=== PATIENT | male | born 1960 | race Caucasian/White ===

== ENCOUNTER 2022-06-30 13:45 | Outpatient (RCR) | payer BC, SELFPAY | END 2022-10-11 11:11 | disposition home or self-care (01) | PROVIDERS: PCP Student in an Organized Health Care Education/Training Program; Visit Provider Physician Assistant Surgical | DX: M25.512 Pain in left shoulder (principal); Z51.89 Encounter for other specified aftercare | CPT/HCPCS: 97110 ==

== ENCOUNTER 2023-03-08 10:26 | Day surgery (SDC) | payer BC, SELFPAY ==
[2023-03-08] VITALS (25 sets, daily range): BP systolic 115–170; BP diastolic 78–121; PULSE 40–94; RESP 12–18; TEMP 8.8–48; O2SAT 55–100; BMI 32.9
[2023-03-08] MEDS: SODIUM CHLORIDE 0.9 % (FLUSH) 10 ML SYRINGE IVF (10:55)
[2023-03-08] MEDS: LACTATED RINGERS 1000 ML 1,000 ML 100 ML IV (10:55)
[2023-03-08] MEDS: ACETAMINOPHEN 500 MG TABLET 1000 MG PO ×2 (11:28→19:33)
[2023-03-08] MEDS: OXYCODONE (CR) 10 MG TAB.ER.12H PO (11:29)
[2023-03-08] MEDS: CELECOXIB 200 MG CAPSULE PO ×2 (11:29→21:38)
--- NOTE | 2023-03-08 11:56 | SUR.PREOP ---
TIME?OUT:?1156 PT/Dilia Hansen RN/Dr. Ja MDA?VERIFICATION?OF?SURGICAL?SITE right knee,?PROCEDURE,?AND?CONSENT OBTAINED?PRIOR?TO?INVASIVE?PROCEDURE.
[2023-03-08] MEDS: fentaNYL 100 MCG/2 ML inj IVP (11:57)
[2023-03-08] MEDS: MIDAZOLAM HCL 1 MG/ML inj IVP (11:57)
--- NOTE | 2023-03-08 12:45 | CRLHL7_ITS ---
For Patients: As a result of the Cures Act, medical imaging exams and procedure reports are released immediately into your electronic medical record. You may view this report before your referring provider. If you have questions, please contact your health care provider. Indication: Postop Technique: Two views right knee Findings/Impression: Hardware from a right total knee arthroplasty is in satisfactory position. Bone alignment is normal. No sign of acute fracture. Postop changes are within normal limits. Dictated by Enrique Llanos MD @ 03/09/2023 8:39:31 AM (Electronically Signed)
[2023-03-08] MEDS: CEFAZOLIN 2 GM in 0.9 % SODIUM CHLORIDE Mini-bag 100 ML IVPB ×2 (12:53→19:33)
--- NOTE | 2023-03-08 12:54 | W.ANESCHARGE ---
Anesthesia Charges Start Date/Time Anesthesia Start Date: 03/08/23 Anesthesia Start Time: 12:43 Stop Date/Time Anesthesia Stop Date: 03/08/23 Anesthesia Stop Time: 14:44
--- NOTE | 2023-03-08 12:54 | W.PM.NB ---
Nerve Block Nerve Block Time Seen by Provider: 12:00 Date Seen: 03/08/23 Type of block requested by surgeon for post-operative analgesia: adductor canal Side: right Time out performed: Yes Verification of patient name: Yes Verification of date of : Yes Site marking: site marked Name of person performing procedure: Ja Continuous monitoring Was continuous monitoring of O2 sat, B/P, material checker, recorded every 15 minutes?: Yes Procedure Checklist: sterile prep, needles and gloves Ultrasound guided. Images saved: Yes Medications given in 5ml increments after negative aspiration: Ropivicaine %: 0.5 mL: 20 Needle gauge: 20 Decadron (mg): 10 Precedex (mcg): 25 Patient tolerated procedure well: Yes Additional comments: Needle noted adjacent to nerve Block Charges Block Charge (with Pro Fee): Femoral Nerve Use of Ultrasound Machine for Block: Yes- US Guidance/pain block
--- NOTE | 2023-03-08 12:55 | W.PM.NB ---
Nerve Block Nerve Block Time Seen by Provider: 12:00 Date Seen: 03/08/23 Type of block requested by surgeon for post-operative analgesia: geniculars Side: right Time out performed: Yes Verification of patient name: Yes Verification of date of : Yes Site marking: site marked Name of person performing procedure: Ja Continuous monitoring Was continuous monitoring of O2 sat, B/P, clinical research monitor, recorded every 15 minutes?: Yes Procedure Checklist: sterile prep, needles and gloves Medications given in 5ml increments after negative aspiration: Ropivicaine %: 0.5 mL: 9 Needle gauge: 25 Patient tolerated procedure well: Yes Block Charges Block Charge (with Pro Fee): Genicular Nerve Block Use of Ultrasound Machine for Block: No
--- NOTE | 2023-03-08 13:56 | PM.ORPRC ---
Procedure Note Date of procedure: 03/08/23 Procedure: PREOPERATIVE DIAGNOSIS: 1. Right knee osteoarthritis, primary, severe POSTOPERATIVE DIAGNOSIS: 1. Right knee osteoarthritis, primary, severe PROCEDURE: 1. Right total knee arthroplasty SURGEON: Charly Bonilla MD. FIRE EQUIPMENT OPERATOR: SYED [place] - Of note, a skilled research assistant member was critical for this case to aid in patient positioning, tissue retraction, limb manipulation/positioning, and closure. ANESTHESIA: Spinal anesthetic EBL: 50ml IMPLANTS: DePuy J&J uncemented femur/tibia, cemented patella TKA - Attune Press fit PS femur size 8, size 8 tibia, 6 poly spacer, 41mm cemented patella TOURNIQUET: 90 min at 300 torr COMPLICATIONS: None evident INDICATIONS: The patient is a pleasant 63-year-old male who has experienced severe right knee pain and difficulty bearing weight. Workup included x-rays which revealed severe osteoarthrosis in the knee. Given the deformity, the dysfunction, and the pain, as well as the failure of nonoperative management, recommendation was made for surgery. FINDINGS: Full-thickness chondral loss broadly throughout the medial compartment and patellofemoral compartment. Moderate to large tricompartmental osteophytes. Large effusion upon entering the joint. DESCRIPTION OF PROCEDURE: Following a thorough discussion of risks, benefits, and alternatives consent was obtained and the right knee was marked. The patient was brought to the operating room and placed supine on the operating table. Induction of anesthesia was undertaken. 2 g IV Ancef and 1 g tranexamic acid was administered within 1 hr of incision preoperatively. Proper time-out was performed identifying proper patient, site, procedure. The operative extremity was prepped and draped in the appropriate sterile fashion using ChloraPrep after the patient was positioned supine with all bony prominences well padded. A longitudinal, anterior, midline skin incision was made starting approximately 3cm proximal to the superior pole of the patella and advanced distal to the tibial tubercle. A median parapatellar arthrotomy was created. A medial subperiosteal sleeve was created with knife, zaragoza elevator and curved osteotome. The retropatellar fatpad was resected and the synovium in the suprapatellar pouch excised to visualize the anterior femoral cortex. Femoral preparation was performed via an intramedullary guide. Step drill allowed access into the femoral canal. The distal cutting guide was placed with 5? of valgus and 11 mm cut on the distal femur due to slight flexion contracture. Femur was sized using a posterior referencing guide in 3? of external rotation. This found have a best fit with the sizing noted above. The 4 in 1 cutting block was then placed, and the distal femur shaped accordingly. The box cut was then created and the trial implant inserted to confirm appropriate fit. We turned our attention to the proximal tibia. Extramedullary guide was utilized for cutting with the goal of being 90 degree cut from the mechanical axis of the tibia in the varus/valgus plane utilizing tibial crest as the primary alignment. Initially a 2 mm resection was performed from the medial tibial plateau. An additional 2 mm required resection. Ultimately, balancing was achieved in both flexion and extension in both varus and valgus. The knee was able to achieve full extension comfortably. The patella was initially measured and found have a thickness of 25 mm. It was resected back to approximately 15 mm. It was sized to be a best fit with as noted above. This was drilled & trial placed. All trials were placed and found to have an excellent stability and balance. At this stage, trial implants were removed, the tibia and femoral components were opened and inserted. Thereafter, the patella was thoroughly irrigated normal saline and dried. The cement was previously mixed on the back table and cement placed followed by the implant. This was clamped and allowed remained stable until the cement cured. The real poly spacer was opened and inserted. All extra cement was removed, and a 3 min Betadine soak performed. Finally, a final irrigation round with normal saline was performed. Closure performed with 0 PDS and #0 Stratafix for the quad tendon/retinaculum. 2-0 Vicryl/Stratafix for the subcutaneous and 4-0 Monocryl for subcuticular closure. Dressings were applied and the patient was awoken from anesthesia after the tourniquet deflated and transferred the PACU in stable condition. A skilled research assistant member was critical for this case to aid in patient positioning, tissue retraction, bone exposure, limb manipulation/positioning, patient safety, and closure. PLAN: 1. Weight bear as tolerated operative extremity. 2. 23 hr perioperative antibiotics. 3. Ice. 4. PT/OT consults for ambulation assistance/mobility education. 5. Social work consult for discharge planning. 6. DVT prophylaxis with at SCDs, Nik Hose, and aspirin twice daily.
--- NOTE | 2023-03-08 14:43 | W.ANESCHARGE ---
Anesthesia Charges Start Date/Time Anesthesia Start Date: 03/08/23 Anesthesia Start Time: 12:43 Stop Date/Time Anesthesia Stop Date: 03/08/23 Anesthesia Stop Time: 14:44
--- NOTE | 2023-03-08 17:40 | P.IMCN_ITS ---
Date of Consult Patient: Martín Patient Consult date: 03/08/23 Requesting Physician: Orthopedics Primary Care Provider: AYDIN DAIGLE DO Consult Narrative Reason for consult: Medical management after surgery Narrative: Lakhwinder Gomez is a 63 year old male with hypertension admitted to the hospital for right total knee arthroplasty. Procedure performed by Dr. Bonilla. There were no operative complications. Postoperatively he is doing well. Preoperatively he was doing well. He has had no recent illness or injury. No significant problems identified on preop physical. He has had previous bilateral shoulder surgery and bilateral inguinal hernia repair without complications of surgery no problems with anesthesia, bleeding or clotting. Review of Systems Narrative: No recent illness or injury. [facility] Medical History (Updated 03/08/23 @ 17:46 by Marquez Lopez MD) Lower extremity edema ?R60.0 - Localized edema (ICD-10) Essential tremor ?G25.0 - Essential tremor (ICD-10) Hypertension ?I10 - Essential (primary) hypertension (ICD-10) Sleep apnea ?G47.30 - Sleep apnea, unspecified (ICD-10) Encounter for screening for severe acute respiratory syndrome coronavirus 2 (SARS-CoV-2) infection ?Z11.52 - Encounter for screening for COVID-19 (ICD-10) Surgical History S/P left knee arthroscopy (11/12/03) ?Z98.890 - Other specified postprocedural states (ICD-10) Status post arthroscopy of right shoulder (10/19/16) ?Z98.890 - Other specified postprocedural states (ICD-10) H/O hernia repair ?Z98.890 - Other specified postprocedural states (ICD-10) ?Z87.19 - Personal history of other diseases of the digestive system (ICD-10) Status post left rotator cuff repair (01/26/22) ?Z98.890 - Other specified postprocedural states (ICD-10) Family History (Updated 03/08/23 @ 17:43 by Marquez Lopez MD) Father Melanoma Mother Dementia Social History (Updated 03/08/23 @ 17:44 by Marquez Lopez MD) Narrative: He lives with his . His house has just a few steps to get in. He can live on 1 level. He does not smoke. He drinks 2 beers a day. He has no adverse reaction if he does not drink for a couple days. Smoking Status: Never smoker Do you use any of these nicotine containing products: Smokeless Tobacco Second hand tobacco smoke exposure: No How often do you have a drink containing alcohol: 4 or more times a week Alcohol type: beer and hard liquor How many standard drinks containing alcohol do you have on a typical day: 1 or 2 AUDIT-C Alcohol total score: 4 Non-prescribed substance use: denies use Caffeine: Yes (Diet Dew, 1 bottle/day) Meds Home Medications and Allergies Home Medications Medication Instructions Recorded Confirmed Type furosemide 20 mg tablet 40 mg PO DAILY 03/08/23 03/08/23 History losartan 25 mg tablet 25 mg PO DAILY 03/08/23 03/08/23 History propranolol 20 mg tablet 20 mg PO BID 03/08/23 03/08/23 History Home Medication Comments: Furosemide is for lower extremity edema Propranolol is for essential tremor Allergies Allergy/AdvReac Type Severity Reaction Status Date / Time No Known Allergies Allergy Verified 03/08/23 10:45 Allergies/Adverse Reaction Comments: Amlodipine caused lower extremity edema Exam Narrative: Exam Narrative: He is alert appears in no distress. Speech is normal. He gives his own history. Oropharynx with small airway. Neck is supple without mass or adenopathy. Respirations are clear to auscultation. Cardiovascular: S1, S2, regular rate and rhythm. No murmur gallop or rub. Abdomen is soft without ten derness or mass. Extremities with intact pulses. No edema. He reports diminished sensation distally which is improving as the spinal anesthesia wears off. Const: Vital Signs, click to edit/add: Vital Signs - 24 hr 03/08/23 10:50 03/08/23 11:55 03/08/23 12:00 Temperature 98.7 F Pulse Rate 62 51 L 55 L Respiratory Rate 16 16 16 Blood Pressure 170/103 H 141/90 H 131/80 Pulse Oximetry 96 98 97 Oxygen Delivery Me thod Room Air Room Air Room Air Oxygen Flow Rate 03/08/23 12:15 03/08/23 12:30 03/08/23 14:41 Temperature 97.0 F L Pulse Rate 53 L 52 L 45 L Respiratory Rate 16 16 12 Blood Pressure 127/78 124/82 139/88 Pulse Oximetry 97 97 97 Oxygen Delivery Me thod Nasal Cannula Nasal Cannula Room Air Oxygen Flow Rate 2 2 03/08/23 14:45 03/08/23 14:50 03/08/23 14:55 Temperature Pulse Rate 43 L 42 L 40 L Respiratory Rate 12 12 12 Blood Pressure 138/88 139/88 138/88 Pulse Oximetry 94 98 98 Oxygen Delivery Me thod Room Air Room Air Room Air Oxygen Flow Rate 03/08/23 15:00 03/08/23 15:05 03/08/23 15:10 Temperature 48 F L 97.2 F L Pulse Rate 51 L 54 L Respiratory Rate 12 14 14 Blood Pressure 137/103 H 137/90 H 152/98 H Pulse Oximetry 99 97 100 Oxygen Delivery Me thod Room Air Room Air Room Air Oxygen Flow Rate 03/08/23 15:20 Temperature Pulse Rate 54 L Respiratory Rate 14 Blood Pressure 151/96 H Pulse Oximetry 98 Oxygen Delivery Me thod Room Air Oxygen Flow Rate Documenting provider has reviewed patient's vital signs: yes Assessment and Plan Assessment and plan (1) Osteoarthritis of right knee: Problem comment: severe Status: Chronic (2) Lower extremity edema: Problem comment: Has had lower extremity edema initially due to amlodipine therapy but continues after discontinuing amlodipine. Status: Acute Plan Patient is admitted for pain management, rehabilitation and postoperative monitoring following knee replacement. Anticipate discharge to home tomorrow. Resume home medications except furosemide until discharge.
[2023-03-08] MEDS: LACTATED RINGERS 1000 ML 1,000 ML 75 ML IV (19:42)
[2023-03-08] MEDS: PROPRANOLOL 20 MG TABLET PO (21:33)
[2023-03-08] MEDS: OXYCODONE 5 MG TABLET PO (21:34)
[2023-03-08] MEDS: ASPIRIN 81 MG TABLET EC PO (21:34)
[2023-03-09] MEDS: ACETAMINOPHEN 500 MG TABLET 1000 MG PO ×2 (00:14→05:52)
[2023-03-09] MEDS: OXYCODONE 5 MG TABLET PO ×3 (02:46→11:04)
[2023-03-09] MEDS: CEFAZOLIN 2 GM in 0.9 % SODIUM CHLORIDE Mini-bag 100 ML IVPB (02:46)
[2023-03-09 02:54] VITALS: BP 129/91; PULSE 56; RESP 18; TEMP 36.5; O2SAT 96
--- NOTE | 2023-03-09 06:48 | PC.NURSE ---
pt A&O. tolerating regular diet. PRN oxycodone given x2 for pain. Pt stating adequate relief. SBA w/ walker and gait belt. Ambulated in perez x4. Denies n/v. dressing c/d/i. CRYO cuff to right knee. voiding adequately. ?CPAP at bedside, Pt declined to wear. O2 greater than 90% throughout shift.
[2023-03-09 07:00] VITALS: BP 131/81; PULSE 95; RESP 16; TEMP 36.6; O2SAT 95; O2SAT 96
[2023-03-09 07:10] LABS: Hematocrit 34.3 % (37.0-53.0); Hemoglobin* 12.1 gm/dL (13.5-17.5); Immature Granulocytes Abs Auto 0.03 K/uL (0.00-0.30); Immature Granulocytes Pct Auto 0.3 %; Lymphocytes Percent Auto 6.1 % (20-44); Mean Corpuscular HGB Conc 35 gm/dL (32-36); Mean Corpuscular Hemoglobin 34 pg (26-34); Mean Corpuscular Volume 95 fL (80-100); Monocytes Percent Auto 12.5 % (0.0-11.0); Neutrophils Percent Auto 81.1 % (42.0-72.0); Platelet Count* 189 K/uL (140-440); RDW Coefficient of Variation % 11.7 % (11.5-15.5); Red Blood Count 3.61 m/uL (4.30-5.90); White Blood Count* 10.26 K/uL (4.50-11.00)
[2023-03-09 07:11] LABS: Slide Review Reflex No
[2023-03-09 07:24] LABS: Potassium* 3.2 mmol/L (3.6-5.1); Sodium* 132 mmol/L (135-149)
[2023-03-09 07:27] LABS: Creatinine* 0.7 mg/dL (0.5-1.5); Est. Creatinine Clearance* 85.14; Estimated Glomerular Filt Rate 105 ml/min
[2023-03-09 07:28] LABS: Blood Urea Nitrogen* 13 mg/dL (7-30)
[2023-03-09] MEDS: LOSARTAN POTASSIUM 50 MG TABLET 25 MG PO (08:06)
[2023-03-09] MEDS: SENNOSIDES 1 TAB TABLET 2 TAB PO (08:07)
[2023-03-09] MEDS: CELECOXIB 200 MG CAPSULE PO (08:08)
[2023-03-09] MEDS: PROPRANOLOL 20 MG TABLET PO (08:08)
[2023-03-09] MEDS: ASPIRIN 81 MG TABLET EC PO (08:09)
--- NOTE | 2023-03-09 10:00 | REH.OT ---
Addendum entered and electronically signed by Anyi Rayo OT 03/09/23 10:26: Patient asked for OT to return to room as he came up with several questions. All questions answered satisfactorily. Original Note: Orders received for OT eval and treat. Patient up ad jean in room and declined need for OT.
--- NOTE | 2023-03-09 11:01 | PM.ORPN ---
Subjective Subjective Date Seen: 03/09/23 Principal diagnosis: Status postop day 1 right total knee arthroplasty - press fit Interval history: Patient reports doing well. No acute events over night. Pain managed with scheduled /PRN medications and ice. DVT prophylaxis 81 mg aspirin by mouth twice daily, bilateral knee high Nik stockings, and SCDs. Reports lightheadedness which was also present preoperatively. This is more of a chronic issue. Intermittent. Denies fevers, chills, aches, N/V, CP, SOB/GARCIA, tachycardia, or tachypnea. Ortho Exam Narrative Exam Narrative: -Patient appears comfortable; no apparent acute distress -Alert and oriented times 3 -Operative knee mildly swollen; soft tissues supple; no ecchymosis; no erythematous streaking Warmth appropriate -Surgical dressing clean, dry, intact; no drainage -Bilateral calfs soft; no significant swelling, tenderness, erythema, discoloration, warmth, or palpable cords. Bilateral lower extremity edema, which is reportedly chronic. -2+ DP/PT pulses, intact dermatomes and myotomes distally (5/5 strength) Const Vital Signs, click to edit/add: Vital Signs - 24 hr 03/08/23 11:55 03/08/23 12:00 03/08/23 12:15 Temperature Pulse Rate 51 L 55 L 53 L Pulse Rate [Pulse Oximeter] Respiratory Rate 16 16 16 Blood Pressure 141/90 H 131/80 127/78 Blood Pressure [Right Arm] Pulse Oximetry 98 97 97 Oxygen Delivery Method Room Air Room Air Nasal Cannula Oxygen Flow Rate 2 03/08/23 12:30 03/08/23 14:41 03/08/23 14:45 Temperature 97.0 F L Pulse Rate 52 L 45 L 43 L Pulse Rate [Pulse Oximeter] Respiratory Rate 16 12 12 Blood Pressure 124/82 139/88 138/88 Blood Pressure [Right Arm] Pulse Oximetry 97 97 94 Oxygen Delivery Method Nasal Cannula Room Air Room Air Oxygen Flow Rate 2 03/08/23 14:50 03/08/23 14:55 03/08/23 15:00 Temperature Pulse Rate 42 L 40 L 51 L Pulse Rate [Pulse Oximeter] Respiratory Rate 12 12 12 Blood Pressure 139/88 138/88 137/103 H Blood Pressure [Right Arm] Pulse Oximetry 98 98 99 Oxygen Delivery Method Room Air Room Air Room Air Oxygen Flow Rate 03/08/23 15:05 03/08/23 15:10 03/08/23 15:20 Temperature 48 F L 97.2 F L Pulse Rate 54 L 54 L Pulse Rate [Pulse Oximeter] Respiratory Rate 14 14 14 Blood Pressure 137/90 H 152/98 H 151/96 H Blood Pressure [Right Arm] Pulse Oximetry 97 100 98 Oxygen Delivery Method Room Air Room Air Room Air Oxygen Flow Rate 03/08/23 15:30 03/08/23 15:45 03/08/23 16:12 Temperature 97.8 F 97.8 F Pulse Rate 53 L Pulse Rate [Pulse Oximeter] 58 L 65 Respiratory Rate 16 16 16 Blood Pressure Blood Pressure [Right Arm] 148/104 H 152/121 H 129/117 H Pulse Oximetry 98 98 Oxygen Delivery Method Room Air Room Air Room Air Oxygen Flow Rate 03/08/23 16:12 03/08/23 16:30 03/08/23 17:00 Temperature 97.8 F Pulse Rate Pulse Rate [Pulse Oximeter] 53 L 81 78 Respiratory Rate 16 16 16 Blood Pressure Blood Pressure [Right Arm] 129/117 H 115/84 131/93 H Pulse Oximetry 98 98 98 Oxygen Delivery Method Room Air Room Air Room Air Oxygen Flow Rate 03/08/23 17:30 03/08/23 18:00 03/08/23 19:00 Temperature 97.8 F 97.3 F L Pulse Rate Pulse Rate [Pulse Oximeter] 89 94 53 L Respiratory Rate 16 16 16 Blood Pressure Blood Pressure [Right Arm] 132/113 H 143/97 H 154/99 H Pulse Oximetry 98 98 98 Oxygen Delivery Method Room Air Room Air Room Air Oxygen Flow Rate 03/08/23 20:01 03/08/23 21:00 03/08/23 22:37 Temperature 98.4 F 98.4 F 97.7 F Pulse Rate Pulse Rate [Pulse Oximeter] 65 65 58 L Respiratory Rate 16 16 18 Blood Pressure Blood Pressure [Right Arm] 135/87 127/85 126/83 Pulse Oximetry 93 55 L 95 Oxygen Delivery Method Room Air Room Air Room Air Oxygen Flow Rate 03/08/23 23:00 03/09/23 02:54 03/09/23 07:00 Temperature 97.7 F 97.9 F Pulse Rate Pulse Rate [Pulse Oximeter] 56 L 95 Respiratory Rate 18 16 Blood Pressure Blood Pressure [Right Arm] 129/91 H 131/81 Pulse Oximetry 96 96 95 Oxygen Delivery Method Room Air Room Air Oxygen Flow Rate 03/09/23 07:00 Temperature Pulse Rate Pulse Rate [Pulse Oximeter] Respiratory Rate Blood Pressure Blood Pressure [Right Arm] Pulse Oximetry 96 Oxygen Delivery Method Oxygen Flow Rate Assessment and Plan Assessment and plan (1) Osteoarthritis of right knee: Problem details: severe Status: Chronic (2) Status post total knee replacement, right: Problem details: POD 1 right total knee [id number] Status: Acute (3) Lower extremity edema: Problem details: Has had lower extremity edema initially due to amlodipine therapy but continues after discontinuing amlodipine. Status: Acute Plan - Complete 23 hour perioperative antibiotics. - PT/OT consult for education and assistance. - Social work consult for discharge planning - Prescribed analgesics as needed - DVT prophylaxis: 81 mg aspirin by mouth twice daily, bilateral knee high Nik Hose stockings and SCDs - Anticipation is for discharge to home with spouse 03/09/2023 if the patient remains medically stable, pain is controlled, and they are safe with mobilization.
--- NOTE | 2023-03-09 11:49 | PC.NURSE ---
Alert and oriented x 3. Reports pain to right knee at 2/10 at rest and 3/10 with movement. Premedicated prior to therapy. Independent with ambulation with front wheeled walker. Discharged home with spouse via wheelchair and private vehicle.
== END 2023-03-09 11:30 | disposition home or self-care (01) ==
LOC: OR 14:13 → MEDSURG 16:36
PROVIDERS: PCP Student in an Organized Health Care Education/Training Program; Visit Provider Orthopaedic Surgery Sports Medicine
PROC: (CPT 27447; principal; 2023-03-08 12:30)
DX: M17.11 Unilateral primary osteoarthritis, right knee (principal); G89.18 Other acute postprocedural pain; R60.0 Localized edema; I10 Essential (primary) hypertension
CPT/HCPCS: 27447; 01402; 36415; 64447; 64454; 73560; 76942; 82565; 84132; 84295; 84520; 85025; 97110; 97116; 97161; 97530; A9270; C1776; J0690; J1100; J2250; J2405; J2704; J3010; J3490; J7120

== ENCOUNTER 2023-03-17 10:08 | Outpatient (CLI) | payer BC, SELFPAY ==
--- NOTE | 2023-03-17 10:15 | CRLHL7_ITS ---
For Patients: As a result of the Century Cures Act, medical imaging exams and procedure reports are released immediately into your electronic medical record. You may view this report before your referring provider. If you have questions, please contact your health care provider. INDICATION: Post right knee replacement, swelling and tenderness. COMPARISON: None. TECHNIQUE: A compression venous ultrasound exam was performed of the right lower extremity using dugan-scale imaging, color Doppler and spectral Doppler analysis. FINDINGS: Sonographic imaging of the right lower extremity demonstrates normal compressibility and color Doppler venous blood flow within the common femoral, femoral, deep femoral, and proximal greater saphenous veins. At a lower level the popliteal, peroneal, and posterior tibial veins also show normal compressibility and color Doppler venous blood flow. Subcutaneous edema in the calf. Limited imaging of the contralateral groin demonstrates a normal spectral waveform and color Doppler venous blood flow within the left common femoral vein. IMPRESSION: Negative for acute DVT in the right lower extremity. Dictated by Geri Malcolm MD @ 03/17/2023 12:54:48 PM (Electronically Signed)
== END 2023-03-17 10:09 | disposition home or self-care (01) ==
PROVIDERS: PCP Student in an Organized Health Care Education/Training Program; Visit Provider Physician Assistant Surgical
DX: M25.561 Pain in right knee (principal); Z96.651 Presence of right artificial knee joint
CPT/HCPCS: 93971

== ENCOUNTER 2023-04-18 13:00 | Outpatient (RCR) | payer BC, SELFPAY | END 2023-08-16 23:59 | disposition home or self-care (01) | PROVIDERS: PCP Student in an Organized Health Care Education/Training Program; Visit Provider Orthopaedic Surgery Sports Medicine | DX: M17.11 Unilateral primary osteoarthritis, right knee (principal); Z51.89 Encounter for other specified aftercare | CPT/HCPCS: 97110; 97140; 97161; 97164; 97535 ==

== ENCOUNTER 2023-07-12 07:58 | Day surgery (SDC) | payer BC, SELFPAY ==
[2023-07-12] VITALS (30 sets, daily range): BP systolic 99–172; BP diastolic 68–107; PULSE 40–84; RESP 14–16; TEMP 35.9–37.1; O2SAT 91–98; BMI 29.9
[2023-07-12] MEDS: LACTATED RINGERS 1000 ML 1,000 ML 100 ML IV ×2 (08:25→11:20)
[2023-07-12] MEDS: ACETAMINOPHEN 500 MG TABLET 1000 MG PO ×3 (08:40→21:21)
[2023-07-12] MEDS: OXYCODONE (CR) 10 MG TAB.ER.12H PO (08:40)
--- NOTE | 2023-07-12 09:24 | CRLHL7_ITS ---
For Patients: As a result of the Cures Act, medical imaging exams and procedure reports are released immediately into your electronic medical record. You may view this report before your referring provider. If you have questions, please contact your health care provider. Indication: POST OP Technique: Two views left hip Findings/Impression: Hardware from a left total hip arthroplasty is in satisfactory position. Bone alignment is normal. No sign of acute fracture. Postop changes are within normal limits. Dictated by Enrique Llanos MD @ 07/13/2023 9:16:40 AM (Electronically Signed)
[2023-07-12] MEDS: fentaNYL 100 MCG/2 ML inj IVP (10:02)
[2023-07-12] MEDS: MIDAZOLAM HCL 1 MG/ML inj IVP (10:04)
--- NOTE | 2023-07-12 10:08 | SUR.PREOP ---
TIME?OUT:?1000 PT/RN/MDA?VERIFICATION?OF?SURGICAL?SITE,?PROCEDURE,?AND?CONSENT OBTAINED?PRIOR?TO?INVASIVE?PROCEDURE.
[2023-07-12] MEDS: CEFAZOLIN 2 GM in 0.9 % SODIUM CHLORIDE Mini-bag 100 ML IVPB ×2 (10:20→16:24)
[2023-07-12] MEDS: TRANEXAMIC ACID 100 MG/ML INJ 1000 MG IV (10:20)
--- NOTE | 2023-07-12 11:42 | P.ORPRC_ITS ---
Procedure Note Date of procedure: 07/12/23 Procedure: PREOPERATIVE DIAGNOSIS: 1. Left knee osteoarthritis, primary, severe POSTOPERATIVE DIAGNOSIS: 1. Left knee osteoarthritis, primary, severe PROCEDURE: 1. Left total knee arthroplasty SURGEON: Charly Bonilla MD. DIRECTOR OF RESTAURANT OPERATIONS: Dheeraj Briggs Pac - Of note, a skilled assistant merchandise manager was critical for this case to aid in patient positioning, tissue retraction, limb manipulation/positioning, and closure. ANESTHESIA: Spinal anesthetic EBL: 50ml IMPLANTS: DePuy J&J uncemented femur/tibia, cemented patella TKA - Attune Press fit PS femur size 8, size 8 tibia, 5 poly spacer, 41mm cemented patella TOURNIQUET: 90 min at 300 torr COMPLICATIONS: None evident INDICATIONS: The patient is a pleasant 63-year-old male who has experienced severe left knee pain and difficulty bearing weight. Workup included x-rays which revealed severe osteoarthrosis in the knee. Given the deformity, the dysfunction, and the pain, as well as the failure of nonoperative management, recommendation was made for surgery. FINDINGS: Full-thickness chondral loss diffusely through the medial compartment. Significant chondromalacia patellofemoral compartment and to a lesser degree lateral compartment. Large effusion upon entering the joint. Multiple loose body seen within the knee joint and calcifications within the quad tendon. DESCRIPTION OF PROCEDURE: Following a thorough discussion of risks, benefits, and alternatives consent was obtained and the left knee was marked. The patient was brought to the operating room and placed supine on the operating table. Induction of anesthesia was undertaken. 2 g IV Ancef and 1 g tranexamic acid was administered within 1 hr of incision preoperatively. Proper time-out was performed identifying proper patient, site, procedure. The operative extremity was prepped and draped in the appropriate sterile fashion using ChloraPrep after the patient was positioned supine with all bony prominences well padded. A longitudinal, anterior, midline skin incision was made starting approximately 3cm proximal to the superior pole of the patella and advanced distal to the tibial tubercle. A median parapatellar arthrotomy was created. A medial nelson bperiosteal sleeve was created with knife, zaragoza elevator and curved osteotome. The retropatellar fatpad was resected and the synovium in the suprapatellar pouch excised to visualize the anterior femoral cortex. Femoral preparation was performed via an intramedullary guide. Step drill allowed access into the femoral canal. The distal cutting guide was placed with 5? of valgus and 11 mm cut on the distal femur. Femur was sized using a anterior referencing guide in 3? of external rotation. This found have a best fit with the sizing noted above. The 4 in 1 cutting block was then placed, and the distal femur shaped accordingly. The box cut was then created and the trial implant inserted to confirm appropriate fit. We turned our attention to the proximal tibia. Extramedullary guide was utilized for cutting with the goal of being 90 degree cut from the mechanical axis of the tibia in the varus/valgus plane utilizing tibial crest as the primary alignment. Initially a 3 mm resection was performed from the medial tibial plateau. Ultimately, balancing was achieved in both flexion and extension in both varus and valgus. The knee was able to achieve full extension comfortably. The patella was initially measured and found have a thickness of 25 mm. It was resected back to approximately 15 mm. It was sized to be a best fit with as noted above. This was drilled & trial placed. All trials were placed and found to have an excellent stability and balance. At this stage, trial implants were removed, the tibia and femoral components were opened and inserted. Thereafter, the patella was thoroughly irrigated normal saline and dried. The cement was previously mixed on the back table and cement placed followed by the implant. This was clamped and allowed remained stable until the cement cured. The real poly spacer was opened and inserted. All extra cement was removed, and a 3 min Betadine soak performed. Finally, a final irrigation round with normal saline was performed. Closure performed with 0 PDS and #0 Stratafix for the quad tendon/retinaculum. 2-0 Vicryl/Stratafix for the subcutaneous and 4-0 Monocryl for subcuticular closure. Dressings were applied and the patient was awoken from anesthesia after the tourniquet deflated and transferred the PACU in stable condition. A skilled assistant merchandise manager was critical for this case to aid in patient positioning, tissue retraction, bone exposure, limb manipulation/positioning, patient safety, and closure. PLAN: 1. Weight bear as tolerated operative extremity. 2. 23 hr perioperative antibiotics. 3. Ice. 4. PT/OT consults for ambulation assistance/mobility education. 5. Social work consult for discharge planning. 6. DVT prophylaxis with at SCDs, Nik Hose, and aspirin twice daily.
--- NOTE | 2023-07-12 11:43 | W.PM.H&PU ---
History & Physical Update History & Physical Update H&P Reviewed and patient assessed: No changes noted
--- NOTE | 2023-07-12 11:53 | P.NB_ITS ---
Nerve Block Nerve Block Time Seen by Provider: 10:06 Date Seen: 07/12/23 Type of block requested by surgeon for post-operative analgesia: geniculars Side: left Time out performed: Yes Verification of patient name: Yes Verification of date of : Yes Site marking: site marked Name of person performing procedure: Ja Continuous monitoring Was continuous monitoring of O2 sat, B/P, instrument inspector, recorded every 15 minutes?: Yes Procedure Checklist: sterile prep, needles and gloves Medications given in 5ml increments after negative aspiration: Ropivicaine %: 0.5 mL: 9 Needle gauge: 25 Patient tolerated procedure well: Yes Block Charges Block Charge (with Pro Fee): Genicular Nerve Block Use of Ultrasound Machine for Block: No
--- NOTE | 2023-07-12 11:53 | P.NB_ITS ---
Nerve Block Nerve Block Time Seen by Provider: 10:06 Date Seen: 07/12/23 Type of block requested by surgeon for post-operative analgesia: adductor canal Side: left Time out performed: Yes Verification of patient name: Yes Verification of date of : Yes Site marking: site marked Name of person performing procedure: Ja Continuous monitoring Was continuous monitoring of O2 sat, B/P, cardiac monitor technician, recorded every 15 minutes?: Yes Procedure Checklist: sterile prep, needles and gloves Ultrasound guided. Images saved: Yes Medications given in 5ml increments after negative aspiration: Ropivicaine %: 0.5 mL: 20 Needle gauge: 20 Decadron (mg): 10 Precedex (mcg): 25 Patient tolerated procedure well: Yes Additional comments: Needle noted adjacent to nerve Block Charges Block Charge (with Pro Fee): Femoral Nerve Use of Ultrasound Machine for Block: Yes- US Guidance/pain block
--- NOTE | 2023-07-12 11:54 | W.ANESCHARGE ---
Anesthesia Charges Start Date/Time Anesthesia Start Date: 07/12/23 Anesthesia Start Time: 10:12 Stop Date/Time Anesthesia Stop Date: 07/12/23 Anesthesia Stop Time: 12:28
--- NOTE | 2023-07-12 12:28 | W.ANESCHARGE ---
Anesthesia Charges Start Date/Time Anesthesia Start Date: 07/12/23 Anesthesia Start Time: 10:12 Stop Date/Time Anesthesia Stop Date: 07/12/23 Anesthesia Stop Time: 12:28
[2023-07-12] MEDS: OXYCODONE 5 MG TABLET PO ×2 (15:50→18:15)
--- NOTE | 2023-07-12 15:53 | PC.NURSE ---
Pt arrived to [facility] room 279 via hospital bed with 2 staff members @ 1308 s/p LTKA with Dr. Bonilla. Pt A & 0, BP slightly elevated, IV patent, cryocuff, bilateral calf high teds and bilateral plexipulses. Pt denied pain. Knee lock engaged and bed alarm activated. Pt took scheduled tylenol 1000 mg PO at shift change. Up to recliner with Julieta from PT. Noemi present at bedside for therapy session. No void since arrival to floor. IS 2000 times 4 with good breath hold and cough after treatment. Plan d/c to home tomorrow with Noemi. Report to Kayla العلي for evening shift. Advanced to regular diet.
--- NOTE | 2023-07-12 17:05 | PM.IMCN1 ---
Date of Consult Consult date: 07/12/23 Requesting Physician: Orthopedics Primary Care Provider: AYDIN DAIGLE DO Consult Narrative Reason for consult: Medical management Narrative: Lakhwinder Gomez is a 63 year old male past medical history significant for hypertension, lower extremity edema, osteoarthritis bilateral knees, tremors is POD#0 s/p left total knee arthroplasty Dr. Bonilla. There have been no perioperative complications or nursing concerns reported. Estimated total blood loss documented as 50 ml. Updated and reviewed the active medical problems, past medical history, past surgical history, social history, allergies and medications in our electronic EMR. Patient is doing well postoperatively. Pain is appropriately managed. Tolerating orals without nausea vomiting. Review of Systems Narrative: REVIEW OF SYSTEMS: Complete review of systems performed and negative unless otherwise stated in HPI or below. PFSH PFSH Medical History Lower extremity edema ?R60.0 - Localized edema (ICD-10) Essential tremor ?G25.0 - Essential tremor (ICD-10) Hypertension ?I10 - Essential (primary) hypertension (ICD-10) Sleep apnea ?G47.30 - Sleep apnea, unspecified (ICD-10) Encounter for screening for severe acute respiratory syndrome coronavirus 2 (SARS-CoV-2) infection ?Z11.52 - Encounter for screening for COVID-19 (ICD-10) Surgical History History of total right knee replacement (03/08/23) ?Z96.651 - Presence of right artificial knee joint (ICD-10) S/P left knee arthroscopy (11/12/03) ?Z98.890 - Other specified postprocedural states (ICD-10) Status post arthroscopy of right shoulder (10/19/16) ?Z98.890 - Other specified postprocedural states (ICD-10) H/O hernia repair ?Z98.890 - Other specified postprocedural states (ICD-10) ?Z87.19 - Personal history of other diseases of the digestive system (ICD-10) Status post left rotator cuff repair (01/26/22) ?Z98.890 - Other specified postprocedural states (ICD-10) Family History Father Melanoma Mother Dementia Social History Narrative: He lives with his . His house has just a few steps to get in. He can live on 1 level. He does not smoke. He drinks 2 beers a day. He has no adverse reaction if he does not drink for a couple days. Smoking Status: Never smoker Do you use any of these nicotine containing products: Smokeless Tobacco Second hand tobacco smoke exposure: No How often do you have a drink containing alcohol: 4 or more times a week Alcohol type: beer and hard liquor How many standard drinks containing alcohol do you have on a typical day: 1 or 2 AUDIT-C Alcohol total score: 4 Non-prescribed substance use: denies use Caffeine: Yes (Diet Dew, 1 bottle/day) Meds Home Medications and Allergies Home Medications Medication Instructions Recorded Confirmed Type losartan 25 mg tablet 50 mg PO BID 03/08/23 07/07/23 History propranolol 20 mg tablet 20 mg PO BID 03/08/23 07/12/23 History furosemide 20 mg tablet 40 mg PO DAILY 07/12/23 07/12/23 History Allergies Allergy/AdvReac Type Severity Reaction Status Date / Time No Known Allergies Allergy Verified 06/16/23 10:27 Exam Narrative: Exam Narrative: PHYSICAL EXAM General: Pleasant, conversant, NAD HEENT: Normocephalic, atraumatic, sclera white, EOMI, oral mucosa moist Cardiovascular: RRR, S1S2. No pitting edema Pulmonary: CTA bilaterally without rhonchi, rales, expiratory wheezes. No dyspnea Abdominal: Soft, nondistended, NTTP Neurological: Alert, answering questions appropriately, cranial nerves intact, no focal findings Extremities: No gross joint deformity or swelling. Postoperative dressing in place, dry. Neurovascularly intact Skin: Warm, dry. Const: Vital Signs, click to edit/add: Vital Signs - 24 hr 07/12/23 09:10 07/12/23 10:05 07/12/23 10:10 Temperature 98.7 F Pulse Rate 55 L 52 L 54 L Pulse Rate [Left P ulse Oximeter] Respiratory Rate 16 16 16 Blood Pressure 162/99 H 153/90 H 128/84 Blood Pressure [Ri ght Arm] Pulse Oximetry 96 98 98 Oxygen Delivery Me thod Room Air Nasal Cannula Nasal Cannula Oxygen Flow Rate 3 3 07/12/23 12:28 07/12/23 12:29 07/12/23 12:30 Temperature Pulse Rate 51 L 49 L 49 L Pulse Rate [Left P ulse Oximeter] Respiratory Rate Blood Pressure 130/96 H Blood Pressure [Ri ght Arm] Pulse Oximetry 94 93 92 Oxygen Delivery Me thod Room Air Room Air Oxygen Flow Rate 07/12/23 12:32 07/12/23 12:33 07/12/23 12:37 Temperature Pulse Rate 50 L 48 L 47 L Pulse Rate [Left P ulse Oximeter] Respiratory Rate Blood Pressure 115/80 137/94 H Blood Pressure [Ri ght Arm] Pulse Oximetry 91 94 94 Oxygen Delivery Me thod Room Air Oxygen Flow Rate 07/12/23 12:38 07/12/23 12:42 07/12/23 12:45 Temperature Pulse Rate 51 L 45 L 53 L Pulse Rate [Left P ulse Oximeter] Respiratory Rate 14 Blood Pressure 164/92 H Blood Pressure [Ri ght Arm] Pulse Oximetry 97 91 96 Oxygen Delivery Me thod Room Air Oxygen Flow Rate 07/12/23 12:46 07/12/23 12:47 07/12/23 12:48 Temperature Pulse Rate 42 L 45 L 43 L Pulse Rate [Left P ulse Oximeter] Respiratory Rate Blood Pressure 164/98 H Blood Pressure [Ri ght Arm] Pulse Oximetry 95 96 97 Oxygen Delivery Me thod Room Air Oxygen Flow Rate 07/12/23 12:50 07/12/23 12:55 07/12/23 13:08 Temperature 97.3 F L Pulse Rate 40 L 42 L 44 L Pulse Rate [Left P ulse Oximeter] Respiratory Rate 16 16 16 Blood Pressure 162/96 H 172/90 H Blood Pressure [Ri ght Arm] 161/68 H Pulse Oximetry 97 97 Oxygen Delivery Me thod Room Air Room Air Room Air Oxygen Flow Rate 07/12/23 13:15 07/12/23 13:30 07/12/23 13:45 Temperature 97.3 F L Pulse Rate Pulse Rate [Left P ulse Oximeter] 40 L 46 L 57 L Respiratory Rate 16 16 16 Blood Pressure Blood Pressure [Ri ght Arm] 157/107 H 149/96 H 150/90 H Pulse Oximetry 94 95 96 Oxygen Delivery Me thod Room Air Room Air Room Air Oxygen Flow Rate 07/12/23 14:00 07/12/23 14:30 07/12/23 15:00 Temperature Pulse Rate Pulse Rate [Left P ulse Oximeter] 49 L 64 Respiratory Rate 16 16 Blood Pressure Blood Pressure [Ri ght Arm] 149/90 H 120/79 Pulse Oximetry 94 95 94 Oxygen Delivery Me thod Room Air Room Air Oxygen Flow Rate 07/12/23 15:00 07/12/23 16:00 Temperature 98.1 F Pulse Rate Pulse Rate [Left P ulse Oximeter] 68 65 Respiratory Rate 16 16 Blood Pressure Blood Pressure [Ri ght Arm] 140/82 H 163/93 H Pulse Oximetry 94 96 Oxygen Delivery Me thod Room Air Room Air Oxygen Flow Rate Assessment and Plan Assessment and plan (1) Osteoarthritis of left knee: Problem comment: -POD#0 s/p left TKA. -Perioperative management including pain control, anticoagulation, therapy per Orthopedic Surgery. -plan to discharge to home with family Status: Chronic (2) Hypertension: Problem comment: -stable, mildly elevated postoperatively, okay to resume losartan tonight Status: Acute (3) Essential tremor: Problem comment: -mildly bradycardic postoperatively, will hold propranolol, resume upon discharge Status: Acute Assessment and Plan: Hospital medicine team will sign off. Please contact our service with questions or concerns.
--- NOTE | 2023-07-12 18:22 | PC.NURSE ---
End of Shift: Patient pleasant and cooperative. Patient vitally stable, lungs clear, BS WNL, IV SL. Patient rates pain 2-3/10, 5 mg of oxy given once and 10mg of oxy given twice. Patient 1 assist, walker, gb, and has walked the halls twice this shift. Patient tolerating regular diet and urinated 1000ml. Patient left knee dressing C/D/I. Cryocuff in use.
[2023-07-12] MEDS: SENNOSIDES 1 TAB TABLET 2 TAB PO (21:21)
[2023-07-12] MEDS: ASPIRIN 81 MG TABLET EC PO (21:21)
[2023-07-13] MEDS: CEFAZOLIN 2 GM in 0.9 % SODIUM CHLORIDE Mini-bag 100 ML IVPB ×2 (00:20→09:14)
[2023-07-13 03:00] VITALS: BP 142/92; PULSE 58; RESP 16; TEMP 36.1; O2SAT 95
[2023-07-13] MEDS: LOSARTAN POTASSIUM 50 MG TABLET PO ×2 (03:23→08:38)
[2023-07-13] MEDS: ACETAMINOPHEN 500 MG TABLET 1000 MG PO (03:24)
--- NOTE | 2023-07-13 05:35 | PC.NURSE ---
Shift note: Pt is doing well ambulating with A1, walker and GB. Pain level has been rated at 2. Alert and oriented, uses call light appropriately. Dressing appears clean and dry. Tolerated regular diet well without any abdominal symptoms. Cryo cuff on throughout the night. Vitally stable. Pt refused Losartan which was scheduled for 2100 for Bp of 120/72 but later requested for it at 0300 when Bp recorded 142/92.
[2023-07-13 06:31] LABS: Basophils Absolute Auto 0.01 K/uL (0.00-0.30); Basophils Percent Auto 0.1 % (0.0-3.0); Hematocrit 37.5 % (37.0-53.0); Hemoglobin* 12.7 gm/dL (13.5-17.5); Immature Granulocytes Abs Auto 0.11 K/uL (0.00-0.30); Immature Granulocytes Pct Auto 1.1 %; Lymphocytes Percent Auto 8.4 % (20-44); Mean Corpuscular HGB Conc 34 gm/dL (32-36); Mean Corpuscular Hemoglobin 32 pg (26-34); Mean Corpuscular Volume 93 fL (80-100); Monocytes Percent Auto 13.1 % (0.0-11.0); Neutrophils Percent Auto 77.3 % (42.0-72.0); Platelet Count* 234 K/uL (140-440); RDW Coefficient of Variation % 13.1 % (11.5-15.5); Red Blood Count 4.03 m/uL (4.30-5.90); White Blood Count* 10.28 K/uL (4.50-11.00)
[2023-07-13 06:32] LABS: Slide Review Reflex No
[2023-07-13 07:00] VITALS: BP 116/84; PULSE 61; RESP 16; TEMP 36.5; O2SAT 95
[2023-07-13 07:30] LABS: Potassium* 3.6 mmol/L (3.6-5.1); Sodium* 134 mmol/L (135-149)
[2023-07-13 07:33] LABS: Blood Urea Nitrogen* 11 mg/dL (7-30); Creatinine* 0.7 mg/dL (0.5-1.5); Est. Creatinine Clearance* 87.67; Estimated Glomerular Filt Rate 105 ml/min
[2023-07-13] MEDS: ASPIRIN 81 MG TABLET EC PO (08:38)
[2023-07-13] MEDS: OXYCODONE 5 MG TABLET PO (08:38)
[2023-07-13] MEDS: SENNOSIDES 1 TAB TABLET 2 TAB PO (08:39)
--- NOTE | 2023-07-13 09:50 | PC.SOCIAL ---
Discharge Planning: Met with patient in room to discuss plan to discharge. Patient states he will be going home and his will be transporting him. No other questions or concerns. Social work to follow up as needed.
--- NOTE | 2023-07-13 11:40 | PC.NURSE ---
Discharge: patient alert and oriented x4. up to BR and hallways with walker/gb. Tolerating a reg diet. pre medicated with oxy prior to therapies. Patient's VSS, denies N/V/SOB. Patient's left knee dressing c/d/i. cryocuff to op site. Patient discharged to home today at 1055 accompanied by spouse. Discharge instructions given and signed. patient verbalized understanding of discharge instructions. Belongings sheet also signed.
--- NOTE | 2023-07-13 11:53 | P.ORPN_ITS ---
Subjective Subjective Date Seen: 07/13/23 Principal diagnosis: Status postop day 1 left total knee arthroplasty Interval history: Patient reports doing well. No acute events over night. Pain managed with scheduled and PRN medications, ice. DVT prophylaxis: 81 mg aspirin by mouth twice daily, bilateral knee high Nik stockings, SCDs, walking. Denies fevers, chills, aches, N/V, CP, SOB/GARCIA, or lightheadedness. Ortho Exam Narrative Exam Narrative: -Patient appears comfortable; no apparent acute distress -Alert and oriented times 3 -Operative knee mildly swollen; soft tissues supple; no ecchymosis; no erythematous streaking Warmth appropriate -Surgical dressing clean, dry, intact; no drainage -Bilateral calfs soft; no significant swelling, edema, tenderness, erythema, discoloration, warmth, or palpable cords -2+ DP/PT pulses, intact dermatomes and myotomes distally (5/5 strength) Const Vital Signs, click to edit/add: Vital Signs - 24 hr 07/12/23 12:28 07/12/23 12:29 07/12/23 12:30 Temperature Pulse Rate 51 L 49 L 49 L Pulse Rate [Left Pulse Oximeter] Respiratory Rate Blood Pressure 130/96 H Blood Pressure [Right Arm] Pulse Oximetry 94 93 92 Oxygen Delivery Method Room Air Room Air 07/12/23 12:32 07/12/23 12:33 07/12/23 12:37 Temperature Pulse Rate 50 L 48 L 47 L Pulse Rate [Left Pulse Oximeter] Respiratory Rate Blood Pressure 115/80 137/94 H Blood Pressure [Right Arm] Pulse Oximetry 91 94 94 Oxygen Delivery Method Room Air 07/12/23 12:38 07/12/23 12:42 07/12/23 12:45 Temperature Pulse Rate 51 L 45 L 53 L Pulse Rate [Left Pulse Oximeter] Respiratory Rate 14 Blood Pressure 164/92 H Blood Pressure [Right Arm] Pulse Oximetry 97 91 96 Oxygen Delivery Method Room Air 07/12/23 12:46 07/12/23 12:47 07/12/23 12:48 Temperature Pulse Rate 42 L 45 L 43 L Pulse Rate [Left Pulse Oximeter] Respiratory Rate Blood Pressure 164/98 H Blood Pressure [Right Arm] Pulse Oximetry 95 96 97 Oxygen Delivery Method Room Air 07/12/23 12:50 07/12/23 12:55 07/12/23 13:08 Temperature 97.3 F L Pulse Rate 40 L 42 L 44 L Pulse Rate [Left Pulse Oximeter] Respiratory Rate 16 16 16 Blood Pressure 162/96 H 172/90 H Blood Pressure [Right Arm] 161/68 H Pulse Oximetry 97 97 Oxygen Delivery Method Room Air Room Air Room Air 07/12/23 13:15 07/12/23 13:30 07/12/23 13:45 Temperature 97.3 F L Pulse Rate Pulse Rate [Left Pulse Oximeter] 40 L 46 L 57 L Respiratory Rate 16 16 16 Blood Pressure Blood Pressure [Right Arm] 157/107 H 149/96 H 150/90 H Pulse Oximetry 94 95 96 Oxygen Delivery Method Room Air Room Air Room Air 07/12/23 14:00 07/12/23 14:30 07/12/23 15:00 Temperature Pulse Rate Pulse Rate [Left Pulse Oximeter] 49 L 64 Respiratory Rate 16 16 Blood Pressure Blood Pressure [Right Arm] 149/90 H 120/79 Pulse Oximetry 94 95 94 Oxygen Delivery Method Room Air Room Air 07/12/23 15:00 07/12/23 16:00 07/12/23 17:00 Temperature 98.1 F 97.1 F L Pulse Rate Pulse Rate [Left Pulse Oximeter] 68 65 84 Respiratory Rate 16 16 16 Blood Pressure Blood Pressure [Right Arm] 140/82 H 163/93 H 99/75 Pulse Oximetry 94 96 96 Oxygen Delivery Method Room Air Room Air Room Air 07/12/23 18:13 07/12/23 19:00 07/12/23 20:28 Temperature 96.6 F L 97.2 F L 97.2 F L Pulse Rate Pulse Rate [Left Pulse Oximeter] 80 64 64 Respiratory Rate 16 16 16 Blood Pressure Blood Pressure [Right Arm] 115/96 H 135/78 135/78 Pulse Oximetry 97 94 94 Oxygen Delivery Method Room Air Room Air Room Air 07/12/23 23:00 07/12/23 23:00 07/13/23 03:00 Temperature 97.2 F L 96.9 F L Pulse Rate Pulse Rate [Left Pulse Oximeter] 56 L 58 L Respiratory Rate 16 16 Blood Pressure Blood Pressure [Right Arm] 138/85 142/92 H Pulse Oximetry 96 96 95 Oxygen Delivery Method Room Air Room Air 07/13/23 07:00 07/13/23 07:00 07/13/23 07:00 Temperature 97.7 F Pulse Rate Pulse Rate [Left Pulse Oximeter] 61 61 Respiratory Rate 16 16 Blood Pressure Blood Pressure [Right Arm] 116/84 Pulse Oximetry 95 95 Oxygen Delivery Method Room Air Assessment and Plan Assessment and plan (1) Status post total knee replacement, left: Problem details: POD 1 (07/12/2023) Status: Acute (2) Osteoarthritis of left knee: Problem details: -Perioperative management including pain control, anticoagulation, therapy per Orthopedic Surgery. -plan to discharge to home with family Status: Chronic (3) Hypertension: Problem details: -stable, mildly elevated postoperatively, okay to resume losartan tonight Status: Acute (4) Essential tremor: Problem details: -mildly bradycardic postoperatively, will hold propranolol, resume upon discharge Status: Acute Plan - Complete 23 hour perioperative antibiotics. - PT/OT consult for education and assistance. - Social work consult for discharge planning - Prescribed analgesics as needed - DVT prophylaxis: 81 mg aspirin by mouth twice daily, bilateral knee high Nik Hose stockings and SCDs - Anticipation is for discharge to home with family 07/13/2023 if the patient remains medically stable, pain is controlled, and they are safe with mobi lizwalker.
== END 2023-07-13 10:55 | disposition home or self-care (01) ==
LOC: OR 07:59 → MEDSURG 07:59
PROVIDERS: PCP Student in an Organized Health Care Education/Training Program; Visit Provider Orthopaedic Surgery Sports Medicine
PROC: (CPT 27447; principal; 2023-07-12 10:30)
DX: M17.12 Unilateral primary osteoarthritis, left knee (principal); G89.18 Other acute postprocedural pain; R00.1 Bradycardia, unspecified; G25.0 Essential tremor; I10 Essential (primary) hypertension; G47.30 Sleep apnea, unspecified; Z96.651 Presence of right artificial knee joint
CPT/HCPCS: 27447; 01402; 36415; 64447; 64454; 73560; 76942; 82565; 84132; 84295; 84520; 85025; 94761; 97110; 97116; 97161; 97165; 97535; A9270; C1776; J0690; J1100; J2250; J2405; J2704; J2795; J3010; J7120

== ENCOUNTER 2023-08-22 08:15 | Outpatient (RCR) | payer BC, SELFPAY ==
--- NOTE | 2023-07-17 09:18 | PT.OPEX ---
[facility] Outpatient Eval PT [facility] Outpatient Eval Start: 07/17/23 07:46 Freq: Status: Active Protocol: Document 07/17/23 07:47 JESI (Rec: 07/17/23 07:52 JESI [id number]) E-signed By Erika Ortiz DPT Physical Therapy Outpatient Evaluation Insurance Information Insurance Name [employer]/[facility] Medical Diagnosis L TKA 07/12/23 Treating Diagnosis s/p L TKA 07/12/23 with L knee pain, impaired L knee ROM, impaired L knee/LE mobility/ strength, limping/antalgic gait, limited tolerance for extended standing/walking, currently off work Subjective Subjective Patient reports having L TKA last Mon, discharge home . Spouse is able to assist at home as needed. Reports increased pain last and Monday. The weekend went ok. Using pain meds as needed, before bed. Tylenol regularly . Icing regularly. Pain range 2-7/10. Reports tightness, stiffness, pain. He is using 4ww for ambulation . States he was able to mow yesterday on the rider - feels better when he can stay active. Has follow up with [facility] later this week. Date of Last Physician Visit 07/13/23 Date of Surgery (If applicable) 07/12/23 Occupation currently off work Precautions Treatment Precautions/Contraindications Hx R TKA February 2023 Weight Bearing Status Weight Bear as Tolerated Assessment Assessment/Impression Patient is a 63 year old male s/p L TKA 07/12/23 with L knee pain, impaired L knee ROM, impaired L knee/LE mobility/ strength, limping/antalgic gait, limited tolerance for extended standing/walking, currently off work. Pain range 2-7/10. Patient is using 4ww for amb. Gait is slow, limping, antalgic, lacking full knee ext with standing/gait, lacking knee flexion with gait. He is using pain meds as needed, tylenol and ice regularly. Sleep is interrupted. HEP is going ok, doing them as able, using strap to assist with exercises. Weak quad set. PT assist with TKA exercises this session. L knee ROM 0-4- 85 degrees. Patient with significant swelling L knee region. Placed tubigrip H on L knee this session. Reviewed elevation, ice, compress, decreased activity to help control pain/swelling. Patient with hx of R TKA, good understanding of post op rehab and recovery. Patient would benefit from skilled PT for pain/swelling management, improved L knee ROM, improved L knee/LE mobility/strength, gait/balance training, and establishment of HEP. Plan of Care Rehabilitation Potential Good Physical Therapy Goals 1. Decrease L knee pain to less than/equal to 3/10 with daily activities and with the progression of PT activities over the next 4-6 weeks. 2. Improve L knee ROM to 0- 120 degrees or greater over the next 6-8 weeks for return to functional knee ROM and improved gait mechanics. 3. Improve L knee/LE mobility /strength over the next 6-8 weeks for return to transfers with ease, return to extended standing/ walking for ADLs/household activities, and for improved gait mechanics with/without AD. 4. Patient will be I with HEP within 8 weeks for progression toward above goals, ongoing self-management of pain/swelling, ongoing self improvements in R knee ROM/strength and for return to normal gait with/ without AD. Coordination/Communication With Referral Source Treatment Plan/Direct Interventions Gait Training,Manual Therapy, Therapeutic Exercises Frequency/Duration 2x/week Patient Will Be Discharged From Therapy Completion of LTG(s),Skills Plateau,Independent w/HEP, Independently Progressing Evaluation Billing Untimed Code Treatment Minutes 20 Complexity Moderate Certification Information Physician Comment/Change : Physician NPI Number #
== END 2023-11-10 10:59 | disposition home or self-care (01) ==
PROVIDERS: PCP Student in an Organized Health Care Education/Training Program; Visit Provider Orthopaedic Surgery Sports Medicine
DX: M17.12 Unilateral primary osteoarthritis, left knee (principal); Z96.652 Presence of left artificial knee joint; Z74.09 Other reduced mobility; R26.89 Other abnormalities of gait and mobility; M25.562 Pain in left knee; Z51.89 Encounter for other specified aftercare
CPT/HCPCS: 97110; 97140; 97162

== ENCOUNTER 2024-01-03 06:45 | Outpatient (CLI) | payer BC, SELFPAY ==
--- NOTE | 2024-01-03 07:15 | MR_ITS ---
[address] [address] Phone:?[phone] Fax:?[phone] Referring Physician Information: Charly Bonilla M.D. [address] [facility] [address] Phone:?[phone] Fax:?[phone] Patient:?Lakhwinder Gomez Javier.B:?1960 Sex:?Male Phone:?[phone] [facility] MRN:?[id number] Exam Date:?01/03/2024 EXAM: MRI of the LEFT SHOULDER, without contrast CLINICAL: Male, 63 years old, with left shoulder pain. INDICATION: Evaluate for shoulder infection and osteomyelitis. PRIOR SURGERY: Reported history of prior surgery. PLAIN FILMS: None available. COMPARISONS: No prior MRIs available. TECHNICAL: Using a 1.5T MR scanner and a localizing shoulder surface coil: 3.0 mm?coronal obliques: PD, T2, STIR 3.0 mm?sagittal obliques: PD, T2 3.0 mm?axials: PD, T2 SEDATION: None. CONTRAST: None. IMPRESSION: 1. Advanced left glenohumeral osteoarthritis associated with massive glenohumeral joint effusion and very large amount of fluid in the subacromial space, associated with marked proliferative synovitis. Septic arthritis would not be able to be excluded and would need to be further clinically correlated/excluded. 2. Advanced osteoarthritis of the left glenohumeral joint. 3. Although perhaps difficult to exclude with complete certainty on MR imaging, the osseous changes of the glenohumeral joint including humeral head and glenoid MR findings appear to be within expectation for advanced glenohumeral osteoarthritis, without convincing suspicion for osteomyelitis. 4. 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 5. Also residua of infraspinatus and subscapularis tendon tear repair surgery with those repairs appearing to be associated with some attenuation but mostly intact, yet severe infraspinatus muscle atrophy and less prominent mild towards moderate decreased bulk of the subscapularis. 6. Suspected residua of proximal biceps transfer tenodesis which appears chronically disrupted. FINDINGS: Glenohumeral joint: Effusion/cyst: Large glenohumeral joint effusion with associated marked proliferative synovitis. Articular cartilage: Grade III-IV chondral thinning of most of the glenohumeral joint. Loose bodies: No demonstrable loose bodies. Inferior glenohumeral ligament/axillary recess: The axillary recess is normal in thickness and signal. No evidence of adhesive capsulitis or capsuloligamentous injury. Labrum: Broad-based marked attenuation of the entire glenoid labrum associated with the advanced osteochondritis. Bones: Proximal humerus: Multiple suture anchor tracks are in keeping with residua of double row technique rotator cuff tear repair surgery. Also suture anchor tracks in the lesser tuberosity are in keeping with residua of subscapularis tendon repair surgery. Suture anchor track deep to the superior aspect of the bicipital sulcus could reflect residua of biceps tenodesis at that location. An up to 2 approximately 25 x 20 mm area of subcortical marrow sclerosis, subchondral cyst formation and overlying cortical irregularity and slight cortical subsidence of the superomedial humeral head is in keeping with osseous reactive changes associated with the advanced osteoarthritis (coronal images 10- 18; axial images 7-11). The possibility that this represents an epicenter of prior avascular necrosis is not excluded with certainty, but thought less likely. Subjacent mild towards moderate ill-defined bone marrow edema is expected to represent associated reactive changes of the osteoarthritis. MR appearance is not particularly suspicious for osteomyelitis. Glenoid: Mild to moderate subcortical bone marrow edema subjacent sclerosis and multiple subchondral cysts of the glenoid appears associated with mild glenoid bony erosion/wear, relatively centric, without convincing significant glenoid retroversion, findings in keeping with the advanced osteoarthritis. No osseous Bankart lesion. Coracoacromial arch: Acromion morphology: Expected residua of anterior acromioplasty for decompression appears adequate. No mesoacromion or preacromion. Acromiohumeral space: Within normal limits at this time despite the rotator cuff tear detailed below. Coracohumeral space: Mildly narrowed. 8 mm bony distance. 7 mm soft tissue distance. Acromioclavicular joint: Joint: Inferior degenerative hypertrophy of the distal clavicular facet of the acromioclavicular joint mildly encroaches upon the subacromial space. Ligaments: Coracoclavicular ligaments are intact. Bursae: Subacromial-subdeltoid: Very large fluid collection in the subacromial- subdeltoid bursa associated with the full-thickness rotator cuff tear detailed below. Subcoracoid: No convincing subcoracoid bursal thickening/bursitis. Rotator cuff and muscles/tendons: Supraspinatus: Residua of supraspinatus tear repair surgery but with chronic full-thickness full-width supraspinatus tendon tear accompanied by marked 5 cm of proximal retraction to the glenohumeral joint and severe Goutallier stage 4 fatty infiltration/replacement. Infraspinatus: Residua of infraspinatus tendon tear repair surgery with most of the infraspinatus tendon appearing to be intact although mildly towards moderately attenuated. Associated severe Goutallier stage 4 fatty infiltration/replacement. Teres minor: No tendinopathy, tear or atrophy. Subscapularis: Residua of subscapularis tendon tear repair surgery. The subscapularis tendon appears chronically attenuated but predominantly intact. Mild towards moderate decreased subscapularis muscle bulk. Deltoid: The deltoid muscle is intact although there are areas of invagination of the massive subacromial fluid collection into the deltoid muscle (axial images 5-17). Biceps tendon, long head: Suspicion for residua of biceps tenodesis at the level of superior margin of the bicipital sulcus, although the biceps tendon is not seen inferior to that questioned tenodesis site, suspect for recurrent interruption and distal retraction. Axilla: No axillary masses or abnormally enlarged lymphadenopathy. F Electronically signed on 01/04/2024 6:01:00 AM by Celestino Lora M.D.
== END 2024-01-03 06:46 | disposition home or self-care (01) ==
LOC: MRI 06:45
PROVIDERS: PCP Student in an Organized Health Care Education/Training Program; Visit Provider Orthopaedic Surgery Sports Medicine
DX: M19.012 Primary osteoarthritis, left shoulder (principal); M25.412 Effusion, left shoulder; M75.102 Unspecified rotator cuff tear or rupture of left shoulder, not specified as traumatic; M86.9 Osteomyelitis, unspecified; Z98.890 Other specified postprocedural states
CPT/HCPCS: 73221

== ENCOUNTER 2024-01-15 06:58 | Day surgery (SDC) | payer BC, SELFPAY ==
[2024-01-15] VITALS (11 sets, daily range): BP systolic 144–181; BP diastolic 76–111; PULSE 63–84; RESP 12–18; TEMP 36.8–37.6; O2SAT 90–97; BMI 32.3
--- OUTSIDE RECORDS SUMMARY | 2024-01-15 07:01 | XMS_ITS | Clinical Summary ---
Author Name Unknown Organization [facility] Address [place], [place] [address] Care Team Providers Care Quality Control Specialist Name Role Phone Tamika Cobian DO Primary Care Provider [phone] Allergies No known active allergies Medications Medication Sig Dispensed Refills Start Date End Date Status CPAPIndications: ML (obstructive sleep apnea) CPAP machine for home use at pressure 4-15 cmw, full face mask x1/3month with a full face cushion x1/mo 1 Each 11 12/28/2022 Active durable medical equipment (DME)Indications :Bilateral lower extremity edema Compression stocking Donning device 1 Each 02/06/2023 Active propranoloL (INDERAL) 20 mg tabletIndication s:Essential tremor TAKE 1 TABLET BY MOUTH TWICE A DAY 180 Tablet 12/05/2023 Active olmesartan (BENICAR) 20 mg tabletIndication s:HTN (hypertension) Take 2 Tablets (40 mg) by mouth once daily. 01/05/2024 Active olmesartan (BENICAR) 20 mg tabletIndication s:HTN (hypertension) Take 1 Tablet (20 mg) by mouth once daily. 90 Tablet 3 12/14/2023 4 Discontinue d(*Medicati on adjustment) Active Problems Problem Noted Date Diagnosed Date ML 12/15/2022 AHI- 29 FFM 12/28/2022 Adenomatous colon polyp 04/22/2022 Overview: Colonoscopy 04/2022 2-TA, repeat in 7 years Primary osteoarthritis of both knees 01/26/2022 Overview: April 2022: Bilateral knee cortisone injections by Dr. Porter, very good benefit. Jul 2022: Repeat right knee cortisone injection, very good benefit. November 2022: Repeat bilateral knee cortisone injections by Dr. Porter. Bilateral inguinal hernia 09/11/2012 Encounters Date Type Department Care Team Description 01/11/2024 2:30 PM CDT Preop Visit [facility] [address] [facility] [address] Tamika Cobian DO Preoperative Exam (01/15/2024 - Charly Jeter - left shoulder biopsy, culture, I&D - [facility] ) 01/11/2024 Travel 01/04/2024 1:00 PM CDT Nurse/Clinic Staff Only [facility] [address] [place] [address] Blood Pressure (BP check) 01/04/2024 Telephone [facility] [address] [facility] [address] Tamika Cobian DO Blood Pressure (BP ) 01/04/2024 Travel 01/03/2024 Orders Only [facility] Scanner 1 scan: (1-Ord) KIRWIN, MRI LT SHOULDER W/O, 01/03/2024 01/03/2024 Telephone [facility] [address] [facility] [address] Tamika Cobian DO Results (regarding labs please fax over to [phone]) 12/28/2023 11:20 AM CDT Nurse/Clinic Staff Only [facility] [address] [facility] [address] Blood Pressure 12/28/2023 11:00 AM CDT Orders Only [facility] [address] [place] [address] Lab, [place] Outside Order (Chad) 12/28/2023 Travel 12/14/2023 9:20 AM [employer] Office Visit [facility] [address] [place] [address] Tamika Cobian DO Blood Pressure 12/14/2023 Travel 12/04/2023 Refill [facility] [place] [facility] [address] [facility] [address] El Delgado MD Refill Request (Propranolol) 12/04/2023 Refill [facility] [address] [place] [address] Tamika Cobian DO Refill Request (Losartan) from Last 3 Months Immunizations Name Administration Dates Next Due COVID-19 vaccine (Moderna 100mcg/0.5mL) PF, MDV 09/30/2021,01/21/2021,12/24/2020 Influenza, IIV4 09/13/2022 Influenza, IIV4 (=>6mos) MDV 07/21/2020, 07/10/2017,06/27/2017, 016 Influenza, Injectable, Mdck, Quadrivalent, W/preservative 07/20/2021 Tdap 09/06/2017 Zoster (Shingrix-RZV, recombinant) 09/13/2022,03/31/2022 Family History Medical History Relation Name Comments Anesthesia Problem No Family History Social History Tobacco Use Types Packs/Day Years Used Date Smoking Tobacco: Never Smokeless Tobacco: Current Chew Tobacco Cessation:Ready to Q uit: No; Counseling Given: Yes Comments:1 tin every 4 days Alcohol Use Standard Drinks/Week Comments Yes 2 (1 standard drink = 0.6 oz pur e alcohol) 1 TO 2 daily PHQ-2 Answer Date Recorded PHQ-2 TOTAL SCORE 0 02/06/2023 Social Connections Answer Date Recorded Frequency of Communication with Friends and Fami ly Not on file 09/23/2023 Financial Resource Strain Answer Date R ecorded Difficulty of Paying Living Expenses 3 09/13/2022 Difficulty of Paying Living Expenses Not on file 09/13/2022 Food Insecurity Answer Date Recorded Worried About Running Out of Food in the Last Ye ar 1 09/13/2022 Transportation Needs Answer Date Record ed Lack of Transportation (Medical) 1 09/13/2022 Housing Stability Answer Date Recorded Unable to Pay for Housing in the Last Year 1 09/13/2022 Sex and Gender Information Value Date Recorded Sex Assigned at Not on file Gender Identity Not on file Sexual Orientation Not on file Obstetrics History Last Filed Vital Signs Vital Sign Reading Time Taken Comments Blood Pressure 172/113 01/11/2024 2:50 PM CDT rec heck Pulse 82 01/11/2024 2:35 PM CDT Temperature 37 ??C (98.6 ??F) 10/13/2016 2:23 PM [employer] Respiratory Rate 20 2007 12:4 0 PM CDT Oxygen Saturation 98% 01/11/2024 2:35 PM CDT Inhaled Oxygen Concentration - - Weight 108.3 kg (238 lb 12.8 oz) 01/11/2024 2:35 PM CDT Height 183.7 cm (6' 0.34) 03/03/2023 9:30 AM CD T Body Mass Index 32.08 03/03/2023 9:30 AM CDT Plan of Treatment Health Maintenance Due Date Last Done Comments COVID-19 vaccine series ( season) 2023 09/30/2021, 01/21/2021, 12/24/2020 Depression screening for age 12+ 02/07/2024 02/06/2023, 01/17/2023, 01/13/2023, Additional history exists BMI (ht and wt on same day) for age 18+ 03/03/2024 03/03/2023, 01/17/2023, 12/28/2022, Additional history exists Influenza for age 50-64 06/09/2024 09/13/20, 07/20/2021, 07/21/2020, Additional history exists Tetanus booster 09/06/2027 09/06/2017 Lipids for age 45-75 02/07/2028 02/06/2023, 02/04/20 Colonoscopy through age 75 04/21/202904/21, 04/21/2022, 04/21/2022, Additional history exists Tdap Completed 09/06/2017 Hepatitis C screening for age 18-79 Completed 02/03/2022 HIV for age 15-65 Completed 09/13/2022 Zoster (shingles) series for age 50+ Completed 09/13/2022, 02/03/2022 Pneumococcal series for age 6-64 Aged Out No longer eligible based on patient's age to complete this topic Procedures Procedure Name Priority Date/Time Associated Diagnosis Comments POTASSIUM Routine 01/11/2024 3:00 PM CDT Pre-op evaluation CREATININE Routine 01/11/2024 3:00 PM CDT Hypertension, unspecified type Pre-op evaluation SCAN-MRI INTERPRETATION 01/03/2024 12:00 AM CDT CBC WITH AUTO DIFFERENTIAL Routine 12/28/2023 11:37 AM CDT Infection of shoulder (HC) INTERLEUKIN 6 Routine 12/28/2023 11:37 AM CDT Infection of shoulder (HC) C-REACTIVE PROTEIN Routine 12/28/2023 11 :37 AM CDT Infection of shoulder (HC) CBC WITH AUTO DIFFERENTIAL Routine 12/28/2023 11:37 AM CDT Infection of shoulder (HC) SEDIMENTATION RATE Routine 12/28/2023 11 :37 AM CDT Infection of shoulder (HC) BASIC METABOLIC PANEL Routine 12/28/2023 11:37 AM CDT HTN (hypertension) LC LIPID PANEL AND CHOL/HDL RATIO Routine 02/06/2023 8:48 AM CDT Lipid screening ANTI HIV 1/2 Routine 09/13/2022 3:16 PM [employer] Screening for HIV (human immunodeficiency virus) COLONOSCOPY SCREENING Routine 04/21/2022 7:28 AM CDT Encounter for screening colonoscopy ANTI HCV Routine 02/03/2022 9:29 AM CDT Need for hepatitis C screening test from Last 3 Months or Most Recently Relevant to Health Maintenance Results * POTASSIUM (01/11/2024 3:00 PM CDT) POTASSIUM 4.2 3.5 - 5.1 mmol/L 01/11/2024 10:07 PM CDT [facility] Blood BLOOD SPECIMEN / Unknown Venipuncture / Unknown 01/11/2024 3:00 PM CDT 01/11/2024 3:01 PM CDT [employer] [place] CHEMISTRY [facility] [address] [place] [address], * CREATININE (01/11/2024 3:00 PM CDT) eGFR >90 >90 mL/min/1.7 3m2 01/11/2024 10:07 PM CDT [facility] Comment:As of 2021, eG FR is calculated by the CKD-EPI creatinine equation without race adjustment. ??eGFR can be influenced by muscle mass, exercise, and diet. ??The reported eGFR is an estimation only and is only applicable if the renal function is stable. CREATININE 0.81 0.70 - 1.20 mg/dL 01/11/2024 10:07 PM CDT [facility] Blood BLOOD SPECIMEN / Unknown Venipuncture / Unknown 01/11/2024 3:00 PM CDT 01/11/2024 3:01 PM CDT [employer] CHEMISTRY Performing Organization Address City/[facility]/ZIP Co de Phone Number [facility] [address] [place] [address], * SCAN-MRI INTERPRETATION (01/03/2024 12:00 AM CDT) Anatomical Region Laterality Modality Other Scanner OTHER * SEDIMENTATION RATE (12/28/2023 11:37 AM CDT) SEDIMENTATION RATE 8 <20 mm/hr 2023 9:26 PM CDT [facility] Blood BLOOD SPECIMEN / Unknown Venipuncture / Unknown 12/28/2023 11:37 AM CDT 12/28/2023 11:37 AM CDT [facility] HEMATOLOG[facility] [address] [place] [address], [place] * (ABNORMAL) CBC WITH AUTO DIFFERENTIAL (12/28/2023 11:37 AM CDT) [facility] WHITE BLOOD COUNT 7.1 4.5 - 11.0 thou/cu mm 12/28/2023 11:42 AM CDT [facility] RED BLOOD COUNT 4.07(L) 4.30 - 5.90 mil/cu mm 12/28/2023 11:42 AM CDT [facility] HEMOGLOBIN 13.3(L) 13.5 - 17.5 g/dL 12/28/2023 11:42 AM CDT [facility] HEMATOCRIT 38.9 37.0 - 53.0 % 12/28/2023 11:42 AM CDT [facility] MCV 96 80 - 100 fL 12/28/2023 11:42 AM CDT [facility] MCH 32.7 26.0 - 34.0 pg 12/28/2023 11:42 AM CDT [facility] MCHC 34.2 32.0 - 36.0 g/dL 12/28/2023 11:42 AM CDT [facility] RDW 13.3 11.5 - 15.5 % 12/28/2023 11:42 AM CDT [facility] PLATELET COUNT 220 140 - 440 thou/cu mm 12/28/2023 11:42 AM CDT [facility] MPV 8.4 6.5 - 11.0 fL 12/28/2023 11:42 AM CDT [facility] % NEUT 59.4 % 12/28/2023 11:42 AM CDT [facility] % LYMPH 21.5 % 12/28/2023 11:42 AM CDT [facility] % MONO 16.8 % 12/28/2023 11:42 AM CDT [facility] % EOS 1.7 % 12/28/2023 11:42 AM CDT [facility] % BASO 0.6 % 12/28/2023 11:42 AM CDT [facility] ABSOLUTE NEUTROPHILS 4.2 1.7 - 7.0 thou/cu mm 12/28/2023 11:42 AM CDT [facility] ABSOLUTE LYMPHOCYTES 1.5 0.9 - 2.9 thou/cu mm 12/28/2023 11:42 AM CDT [facility] ABSOLUTE MONOCYTES 1.2(H) <0.9 thou/cu mm 12/28/2023 11:42 AM CDT [facility] ABSOLUTE EOSINOPHILS 0.1 <0.5 thou/cu mm 12/28/2023 11:42 AM CDT [facility] ABSOLUTE BASOPHILS 0.0 <0.3 thou/cu mm 12/28/2023 11:42 AM CDT [facility] Blood BLOOD SPECIMEN / Unknown Venipuncture / Unknown 12/28/2023 11:37 AM CDT 12/28/2023 11:37 AM CDT Narrative [facility] - 12/28/2023 11:42 AM CDT This testing was ordered by an outside provider. ??It is the responsibility of this original ordering provider to inform the patient of these results and manage them. ??The provider used to place this order will not be advising the patient about these results. Results for testing ordered: ESR,CDF,CRP,INTERLEUKIN 6 , will be faxed to: ??Charly Bonilla at fax number: ??[phone]. Jennifer Banuelos .................... ??12/28/2023 ?? 11:25 AM Tamika Cobian DO HEMATOLOGY [facility] [address] [place] [address], * INTERLEUKIN 6 (12/28/2023 11:37 AM CDT) Pathologist [facility] Interleukin-6, Serum 4.0 0.0 - 13.0 pg/mL 01/02/2024 1:10 PM CDT [facility] ([facility]) Comment: Based on the available clinical data, PCR-confirmed COVID-19 patients with IL-6 concentrations >35.0 pg/mL at presentation are at risk for mechanical ventilation during their hospitalization. IL-6 values should be used in conjunction with clinical findings and the results of other laboratory findings. IL-6 values alone are not indicative of the need for endotracheal intubation or mechanical ventilation. Blood BLOOD SPECIMEN / Unknown Venipuncture / Unknown 12/28/2023 11:37 AM CDT 12/28/2023 11:37 AM CDT Narrative [facility] ([facility]) - 01/02/2024 1:10 PM CDT Test(s) 789359-[id number], Serum has not been FDA cleared or approved. This test has been authorized by FDA under an EUA for use by authorized laboratories. This test has been authorized only to assist in identifying severe inflammatory response, when used as an aid in determining the risk of intubation with mechanical ventilation in confirmed COVID-19 patients. This test is only authorized for the duration of the declaration that circumstances exist justifying the authorization of emergency use of medical devices under Section 564(b)(1) of the Act, 21 U.S.C. / 360bbb-3(b)(1), unless the authorization is terminated or revoked sooner. Performed at: ??[address] ??[id number] Maintenance Supervisor: Delroy Kerr MD, Phone: ??[phone] Tamika Cobian DO SEND OUTS [facility] ([facility]) [address] [place] [id number], * (ABNORMAL) C-REACTIVE PROTEIN (12/28/2023 11:37 AM CDT) Pathologist [facility] C-REACTIVE PROTEIN 1.5(H) <0.5 mg/dL 12/28/2023 10:19 PM CDT [facility] Blood BLOOD SPECIMEN / Unknown Venipuncture / Unknown 12/28/2023 11:37 AM CDT 12/28/2023 11:37 AM CDT Tamika Cobian DO [facility] [address] [place] [address], * (ABNORMAL) BASIC METABOLIC PANEL (12/28/2023 11:37 AM CDT) SODIUM 138 136 - 145 mmol/L 12/28/2023 10:19 PM CDT [facility] POTASSIUM 3.7 3.5 - 5.1 mmol/L 12/28/2023 10:19 PM CDT [facility] CHLORIDE 100 98 - 107 mmol/L 12/28/2023 10:19 PM T [facility] CO2,TOTAL 25 22 - 29 mmol/L 12/28/2023 10:19 PM T [facility] ANION GAP 13 5 - 18 12/28/2023 10:19 PM T [facility] GLUCOSE 101(H) 70 - 99 mg/dL 12/28/2023 10:19 PM CDT [facility] CALCIUM 9.2 8.8 - 10.2 mg/dL 12/28/2023 10:19 PM T [facility] BUN 15 8 - 23 mg/dL 12/28/2023 10:19 PM T [facility] CREATININE 0.87 0.70 - 1.20 mg/dL 12/28/2023 10:19 PM T [facility] BUN/CREAT RATIO 17 10 - 20 4 10:19 PM T [facility] eGFR >90 >90 mL/min/1.7 3m2 12/28/2023 10:19 PM T [facility] Comment:As of 2021, eG FR is calculated by the CKD-EPI creatinine equation without race adjustment. ??eGFR can be influenced by muscle mass, exercise, and diet. ??The reported eGFR is an estimation only and is only applicable if the renal function is stable. Blood BLOOD SPECIMEN / Unknown Venipuncture / Unknown 12/28/2023 11:37 AM CDT 12/28/2023 11:37 AM CDT Tamika Cobian DO CHEMISTRY [facility] [address] [place] [address], * (ABNORMAL) LC LIPID PANEL AND CHOL/HDL RATIO (02/06/2023 8:48 AM CDT) [facility] Cholesterol, Total 206(H) 100 - 199 mg/dL 02/08/2023 10:10 AM CDT [facility] ([facility]) Triglycerides 103 0 - 149 mg/dL 02/08/2023 10:10 AM T [facility] ([facility] HDL Cholesterol 100 >39 mg/dL 10:10 AM T [facility] ([facility] VLDL Cholesterol Pavan 18 5 - 40 mg/dL 02/08/2023 10:10 AM T [facility] ([facility] LDL Chol Calc (NIH) 88 0 - 99 mg/dL 02/08/2023 10:10 AM T [facility] ([facility]) T. Chol/HDL Ratio 2.1 0.0 - 5.0 ratio 02/08/2023 10:10 AM [facility] ([facility]) Comment: ?T. Chol/HDL Ratio ?Men ??Women ?1/2 Avg.Risk ??3.4 ?3.3 ?Avg.Risk ??5.0 ?4.4 ? 2X Avg.Risk ??9.6 ?7.1 ? 3X Avg.Risk 23.4 ?? 11.0 Blood BLOOD SPECIMEN / Unknown Venipuncture / Unknown 02/06/2023 8:48 AM CDT 02/06/2023 8:52 AM CDT Narrative [facility] ([facility]) - 02/08/2023 10:10 AM CDT Performed at: ??[address] [place], [place] ??[id number] Maintenance Supervisor: Onur Erazo MD, Phone: ??[phone] Adei Shaqra DO SEND OUTS Performing Organization Address City/[facility]/ZIP Co de Phone Number [facility] ([facility]) [address] [place], [place] [id number], * ANTI HIV 1/2 [31676.0] (09/13/2022 3:16 PM [employer]) HIV-1/HIV-2 ANTIBODY Non-Reacti ve Non-Reacti ve 09/16/2022 4:36 AM [employer] [facility] Comment:HIV-1 p24 and HIV-1/ HIV-2 Ab not detected. Blood BLOOD SPECIMEN / Unknown Venipuncture / Unknown 09/13/2022 3:16 PM [employer] 09/13/2022 3:16 PM [employer] Adei Shaqra DO SEND OUTS [facility] [address] [place] [address], [place] * COLONOSCOPY (04/21/2022 7:40 AM CDT) 04/21/2022 7:40 AM CDT Narrative Transcriptions Win Beck MD - 04/21/2022 8:31 AM CDT Patient Name: Lakhwinder Goemz Procedure Date: 04/21/2022 Gender: Male Date of : 1960 Admit Type: Outpatient Procedure: Colonoscopy Proceduralist: Win Beck MD , Kecia Burgess (Nurse) Referring MD: Tamika Cobian Indications/Pre-Op Diagnosis: Screening for colorectal malignant neoplasm, This is the patient's first colonoscopy Medications: Fentanyl 100 micrograms IV, Midazolam 3 mgIV, The level of sedation administered wasmoderate Procedure Description: The patient had risks, benefits and alternatives explained to andgave informed consent. The patient had a stable cardiopulmonary status and judged an adequate candidate for conscious sedation. The [id number] was passed through the anus and advanced tothe cecum, identified by appendiceal orifice and ileocecal valve. The colonoscopy was performed without difficulty. The patient toleratedthe procedure well. The quality of the bowel preparation was good. The ileocecal valve, appendiceal orifice, and rectum were photographed. Complications: No immediate complications. Estimated Blood Loss & Specimen: Estimated blood loss: none. Specimen collected - Yes and sent to Laboratory Findings: The perianal and digital rectal examinations were normal. A 3 mm polyp was found in the proximal ascending colon. The polyp was sessile. The polyp was removed with a cold snare. Resection and retrieval were complete. A 2 mm polyp was found in the descending colon. The polyp wassessile. The polyp was removed with a cold biopsy forceps. Resection and retrieval were complete. The exam was otherwise without abnormality. Impressions/Post-Op Diagnosis: - One 3 mm polyp in the proximal ascending colon, removed with a cold snare. Resected and retrieved. - One 2 mm polyp in the descending colon, removed with a cold biopsy forceps. Resected and retrieved. - The examination was otherwise normal. Recommendation: - Patient has a contact number available for emergencies. The signsand symptoms of potential delayed complications were discussed with the patient. Return to normal activities tomorrow. Written discharge instructions were provided to the patient. - Resume previous diet. - Continue present medications. - Await pathology results. - Repeat colonoscopy is recommended. The colonoscopy date will be determined after pathology results from today's exam become available for review. Moderate Sedation: Moderate (conscious) sedation was administered by the endoscopy nurse and supervised by the endoscopist. The following parameters were monitored: oxygen saturation, heart rate, respiratory rate, blood pressure, adequacy of pulmonary ventilation and reponse to care. Please refer to the patient's medical record flowsheets and nursing notes for moderate sedation details. Total physician intraservice time was 23 minutes. Win Beck MD 04/21/2022 8:31:19 AM This report has been signed electronically. Note Initiated On: 04/21/2022 7:40 AM Procedure Code(s): --- Professional --- 86932, Colonoscopy, flexible; with removalof tumor(s), polyp(s), or other lesion(s) bysnare technique 96996, 59, Colonoscopy, flexible; withbiopsy, single or multiple Diagnosis Code(s): --- Professional --- Z12.11, Encounter for screening formalignant neoplasm of colon D12.2, Benign neoplasm of ascending colon D12.4, Benign neoplasm of descending colon CPT copyright 2020 [employer]. All rights reserved. The codes documented in this report are preliminary and upon manager collection reviewmay be revised to meet current compliance requirements. Scope In: 8:05:03 AM Scope Withdrawal Time 0 hours 13 minutes 16 seconds Scope Out: 8:24:16 AM Win Beck MD PROCEDURE ORD * ANTI HCV (02/03/2022 9:29 AM CDT) HEPATITIS C ANTIBODY Non-React lydia Non-React lydia 02/03/2022 7:14 PM CDT [facility] Comment:Antibodies to HCV no t detected; does not exclude the possibility of exposure to HCV. Blood BLOOD SPECIMEN / Unknown Venipuncture / Unknown 02/03/2022 9:29 AM CDT 02/03/2022 9:29 AM CDT Tamika Cobian DO SEND OUTS [facility] [address] [place] [address], from Last 3 Months or Most Recently Relevant to Health Maintenance Care Teams Quality Control Specialist Relationship Specialty Start Date End Date Tamika [place] [address] PCP - General Family Practice 08/08/22
--- NOTE | 2024-01-15 07:23 | W.PM.H&PU ---
History & Physical Update History & Physical Update H&P Reviewed and patient assessed: No changes noted
[2024-01-15] MEDS: EPINEPHrine 1 MG in SODIUM CHLORIDE IRRIG SOLUTION 3,000 ML 9003 MG IRRIGATION ×3 (07:30→08:10)
[2024-01-15] MEDS: LACTATED RINGERS 1000 ML 1,000 ML 100 ML IV ×2 (07:54→10:29)
[2024-01-15] MEDS: SODIUM CHLORIDE 0.9 % (FLUSH) 10 ML SYRINGE IVF (07:54)
--- NOTE | 2024-01-15 09:12 | W.ANESCHARGE ---
Anesthesia Charges Start Date/Time Anesthesia Start Date: 01/15/24 Anesthesia Start Time: 08:37 Stop Date/Time Anesthesia Stop Date: 01/15/24 Anesthesia Stop Time: 10:20
[2024-01-15] MEDS: CEFAZOLIN 2 GM in 0.9 % SODIUM CHLORIDE Mini-bag 100 ML IVPB (09:33)
--- NOTE | 2024-01-15 10:06 | PM.ORPRC ---
Procedure Note Date of procedure: 01/15/24 Procedure: PREOPERATIVE DIAGNOSES: 1. Left shoulder rotator cuff retear 2. Left shoulder deep infection 3. Left shoulder retained deep implant POSTOPERATIVE DIAGNOSES: 1. Left shoulder rotator cuff retear 2. Left shoulder retained deep implant 3. Left shoulder labral tearing 4. 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 NAME OF OPERATION: 1. Left shoulder arthroscopic irrigation and debridement for suspected deep infection 2. Left shoulder arthroscopic deep implant removal 3. Left shoulder arthroscopic extensive glenohumeral debridement including debridement of labral tissue, rotator cuff tissue, and humeral head bone 4. Left shoulder arthroscopic biopsy/culture of glenohumeral tissue as well as subacromial tissue. SURGEON: Charly Bonilla MD [employer]: [employer]. Of note, a skilled assistant professor of archaeology was critical for this case to aide in patient positioning, suture manipulation, arm positioning, instrument positioning, and closure. ANESTHESIA: General plus preoperative supraclavicular block. EBL: 25 mL IMPLANTS: None COMPLICATIONS: None evident INDICATIONS: The patient is a pleasant, 63-year-old male who has experienced left shoulder pain that has been increasing in recent time. Physical exam and imaging were consistent with a rotator cuff re-tear. There is some concern for deep infection. It may be C. Acnes as clinically it is not a fulminant situation. In addition, inflammatory labs were relatively normal, but there is some erythema in the anterior shoulder near 1 of the previous portal sites making this a concern for possible deep infection. Given their findings, as well as the weakness and pain, and inadequate response to nonoperative management, recommendation was made for surgery. FINDINGS: Exam under anesthesia revealed stable shoulder with excellent range of motion. The diagnostic arthroscopy revealed grade 4 chondromalacia humeral head and glenoid diffusely/broadly. The Subscapularis tendon was torn from its upper border with moderate retraction. The long head of the biceps tendon was absent. The superior rotator cuff tendon was found to be torn full-thickness involving the entire supraspinatus and majority the infraspinatus with significant retraction back to the level of the glenoid. There is significant synovitis diffusely throughout the shoulder as well as in the subacromial space. The labrum was substantially degenerative the frayed/torn near circumferentially. Previous anchors were starting to break down and were friable. The sutures were holding no rotator cuff tissue anymore but the were still in place without clear tear to the suture. Instead, it appeared the rotator cuff tissue had pulled out of the sutures. We ended up removing all of the sutures in at least 3 of the anchors with eyelets. It was somewhat difficult to identify the anchors as they were starting to break down given their time line. PROCEDURE: Following a thorough discussion of risks, benefits, and alternatives, consent was obtained and the left shoulder was marked. The patient was brought to the operating room and placed supine on the operating table. Induction of anesthesia was completed after preoperative supraclavicular block was administered in preop holding. Appropriate time out was performed identifying proper patient, site, and procedure. Of note, a eventually 2 g IV Ancef was administered but it was not until after cultures had been obtained, intentionally. The left upper extremity was prepped and draped in the appropriate sterile fashion using ChloraPrep prep. This was after the patient was positioned in the beach chair with their head in neutral alignment and all bony prominences well padded. The shoulder was insufflated with 20mL of normal saline via an 18g spinal needle from a posterior approach. An 11 blade skin incision allowed a blunt trochar to be inserted and diagnostic arthroscopy to be performed with the findings as noted above. An anterior portal was established with an outside in technique. This allowed the probe to be inserted and confirm the diagnostic arthroscopic findings. The shaver was then inserted and allowed debridement of the labral tissue, the rotator cuff tissue, the synovial tissue, and humeral head bone tissue. The rotator cuff was found to be torn and retracted back to the glenoid. We were able to identify the previous speed bridge suture configuration. The sutures were grasped with a laparoscopic needle class a truck driver. They were rolled and removed including the 2 medial row anchors with her eyelids, and 1 of the lateral anchors with its eyelet. The other lateral row anchor could not be identified. This may have been already did broken down but it did not come out likely other anchors did when pulling on the sutures. No further loose bodies were identified. This was all performed through combination of glenohumeral and subacromial portals as they were essentially 1 space as the rotator cuff was retorn. Thorough irrigation normal saline including 9 L of normal saline was irrigated through the shoulder. Biopsy/tissue was obtained and sent for culture of the glenohumeral tissue, subacromial tissue, and the fluid from the glenohumeral joint upon 1st entering the joint. 3 separate cultures. I would like these to be held for 5 weeks with concern for C. Acnes. Instruments were removed. Excess fluid was drained, closure performed with 4-0 Monocryl and Steri-Strips. Dressings were applied. Sling was applied. The patient was awoken from anesthesia and transferred to the PACU in stable condition. A skilled assistant professor of archaeology was critical for this case to aid in patient positioning, limb positioning, skill to manipulate arthroscopic instruments and camera, suture management, patient safety, and closure. PLAN: 1. Elbow, forearm, wrist and digit range of motion of operative extremity as tolerated. 2. Encouraged ice. 3. Oxycodone for pain as needed. 4. Sling at all times except for ROM and showering. 5. Follow up with PA visit in 1-2 weeks for wound check. Follow-up on cultures for the 5 week ann marie for C. Acnes suspicion. If positive, he will need appropriate antibiotic treatment. 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
== END 2024-01-15 12:42 | disposition home or self-care (01) ==
PROVIDERS: PCP Student in an Organized Health Care Education/Training Program; Visit Provider Orthopaedic Surgery Sports Medicine
PROC: (CPT 29805; principal; 2024-01-15 08:15)
DX: M75.102 Unspecified rotator cuff tear or rupture of left shoulder, not specified as traumatic (principal); T84.611A Infection and inflammatory reaction due to internal fixation device of left humerus, initial encounter; S43.432A Superior glenoid labrum lesion of left shoulder, initial encounter; M94.212 Chondromalacia, left shoulder; M65.812 Other synovitis and tenosynovitis, left shoulder
CPT/HCPCS: 29823; 29819; 01630; 87070; 87075; 87186; 87205; J0171; J0330; J0690; J1100; J1170; J2250; J2405; J2704; J3010; J7120; L3670